=== PATIENT | female | born 1985 | race Hispanic/Latino ===

== ENCOUNTER 2020-10-16 17:03 | Emergency (ER) | payer SELFPAY ==
[~2020-10-16] VITALS: Ht 154.9 cm; Wt 60.8 kg
[2020-10-16] MEDS ORDERED: LIDOCAINE HCL 1% 20 ML VIAL INJ SCH (22:00)
[2020-10-16] MEDS ORDERED: LIDOCAINE HCL 1% 20 ML VIAL ONE (22:00)
[2020-10-16 22:20] VITALS: BP 112/76
[2020-10-16] MEDS ORDERED: ACETAMINOPHEN 500 MG TABLET PO ONE (22:30)
[2020-10-16] MEDS ORDERED: IBUPROFEN 400 MG TABLET PO ONE (22:30)
[2020-10-16] MEDS ORDERED: NEOMY SULF/BACITRA/POLYMYXIN B 1 EACH PACKET TP ONE ×2 (22:30→22:36)
[2020-10-16] MEDS ORDERED: CLINDAMYCIN HCL 150 MG CAP PO ONE (22:30)
[2020-10-16] MEDS ORDERED: CLIN300C10 PO (22:35)
== END 2020-10-16 23:16 | disposition home or self-care (01) ==
LOC: EDH 17:03
DX: S00.451A Superficial foreign body of right ear, initial encounter (principal); X58.XXXA Exposure to other specified factors, initial encounter; Y93.89 Activity, other specified; Y92.89 Other specified places as the place of occurrence of the external cause; Y99.8 Other external cause status

== ENCOUNTER 2021-02-05 19:28 | Emergency (ER) | payer OTHER, SELFPAY ==
[~2021-02-05] VITALS: Ht 154.9 cm; Wt 59.0 kg
[~2021-02-05 19:28] MED LIST: CLIN-141 PO
[2021-02-05 19:29] VITALS: BP 115/76
== END 2021-02-05 20:57 | disposition home or self-care (01) ==
LOC: EDH 19:28
DX: J02.9 Acute pharyngitis, unspecified (principal); Z20.822 Contact with and (suspected) exposure to COVID-19
CPT/HCPCS: 36415; 86308; 87635; 87804 ×2; 87880; 99283; C9803